=== PATIENT | female | born 1990 | race Asian ===

== ENCOUNTER 2024-02-06 03:43 | Inpatient (IN) | payer MEDICAID ==
[2024-02-06] MEDS ORDERED: Sodium Chloride 0.9% 10 ML Syringe FLUSH PRN (04:33)
[2024-02-06] MEDS ORDERED: Ondansetron 4 MG/2 ML SDV IVPUSH PRN (04:33)
[2024-02-06] MEDS ORDERED: Nalbuphine 10 MG/1 ML Vial IVPUSH PRN (04:33)
[2024-02-06] MEDS ORDERED: Lactated Ringers 1,000 ML IV SCH (04:45)
[2024-02-06 04:56] LABS: BASOPHILS PERCENT AUTO 0.1 % (0.0-1.0); EOSINOPHILS PERCENT AUTO 0.3 % (0.0-6.0); HEMATOCRIT 35.9 % (37.0-47.0); HEMOGLOBIN 11.5 gm/dl (12.0-16.0); IMMATURE GRAN ABSOLUTE AUTO 0.14 K/mm3 (0.00-0.05); IMMATURE GRAN PERCENT AUTO 1.2 % (0.0-0.4); LYMPHOCYTES ABSOLUTE AUTO 1.3 K/mm3 (1.0-4.8); LYMPHOCYTES PERCENT AUTO 11.1 % (24.0-44.0); MEAN CORPUSCULAR HEMOGLOBIN 29.8 pg (28.0-32.0); MEAN PLATELET VOLUME 11.1 fl (9.4-12.3); MONOCYTES ABSOLUTE AUTO 0.6 K/mm3 (0.0-0.8); MONOCYTES PERCENT AUTO 5.3 % (0.0-8.0); NEUTROPHILS ABSOLUTE AUTO 9.3 K/mm3 (1.8-7.7); PLATELET COUNT,PLT 185 K/mm3 (150-400); RED BLOOD CELL COUNT 3.86 M/mm3 (4.10-5.30); WHITE BLOOD CELL COUNT,WBC 11.34 K/mm3 (3.9-11.3)
[2024-02-06] MEDS: Lidocaine 1% 50 ML MDV INJECT PRN (16:00)
[2024-02-06] MEDS: Oxytocin/0.9 % Sodium Chloride 30 UNIT/500 ML BAG IV SCH (16:05)
[2024-02-06] MEDS ORDERED: Acetaminophen 325 MG Tab PO PRN (16:54)
[2024-02-06] MEDS ORDERED: Docusate Sodium 100 MG Cap PO PRN (16:54)
[2024-02-06] MEDS: Witch Hazel Medicated Pads 40/Jar TOP PRN (17:26)
[2024-02-06] MEDS: Benzocaine/Menthol 20%-0.5% Spray 78 GM Cannister TOP PRN (17:26)
[2024-02-06] MEDS: Ibuprofen 600 MG Tab PO SCH (18:32)
[2024-02-06] MEDS: Ferrous Sulfate 324 MG Tab.EC PO SCH (18:44)
[2024-02-07 07:35] LABS: HEMATOCRIT 27.3 % (37.0-47.0); MEAN CORPUSCULAR HEMOGLOBIN 29.9 pg (28.0-32.0); MEAN CORPUSCULAR HGB CONC 32.6 g/dl (32.0-36.0); MEAN CORPUSCULAR VOLUME 91.6 fl (83.0-99.0); MEAN PLATELET VOLUME 11.3 fl (9.4-12.3); PLATELET COUNT,PLT 144 K/mm3 (150-400); RED BLOOD CELL COUNT 2.98 M/mm3 (4.10-5.30); WHITE BLOOD CELL COUNT,WBC 16.26 K/mm3 (3.9-11.3)
[2024-02-07 07:36] LABS: HEMOGLOBIN 8.9 gm/dl (12.0-16.0)
[2024-02-07] MEDS: Prenatal Multivitamin with Calcium/Folic Acid/Iron Tab PO SCH (08:24)
[2024-02-07] MEDS: Sodium Chloride 0.9% 10 ML Syringe FLUSH SCH (17:24)
[2024-02-08 07:14] LABS: HEMATOCRIT 27.1 % (37.0-47.0); HEMOGLOBIN 8.7 gm/dl (12.0-16.0); MEAN CORPUSCULAR HGB CONC 32.1 g/dl (32.0-36.0); MEAN CORPUSCULAR VOLUME 93.4 fl (83.0-99.0); MEAN PLATELET VOLUME 10.9 fl (9.4-12.3); PLATELET COUNT,PLT 140 K/mm3 (150-400)
== END 2024-02-08 10:48 | disposition home or self-care (01) | DRG 807 ==
LOC: JD.OBCHECK 03:43 → JD.OB 03:52 → JD.OBCHECK 05:21 → JD.OB 05:26 → OBSVTOIN 16:04 → JD.OB 16:05
PROVIDERS: ADMIT Family Medicine; ATTEND Family Medicine
PROC: 10E0XZZ Delivery of Products of Conception, External Approach (ICD-10-PCS; principal; 2024-02-06)
PROC: 0KQM0ZZ Repair Perineum Muscle, Open Approach (ICD-10-PCS; 2024-02-06)
PROC: 10907ZC Drainage of Amniotic Fluid, Therapeutic from Products of Conception, Via Natural or Artificial Opening (ICD-10-PCS; 2024-02-06)
PROC: 3E033VJ Introduction of Other Hormone into Peripheral Vein, Percutaneous Approach (ICD-10-PCS; 2024-02-06)
DX: O48.0 Post-term pregnancy (principal); Z37.0 Single live birth; O70.1 Second degree perineal laceration during delivery; O69.81X0 Labor and delivery complicated by cord around neck, without compression, not applicable or unspecified; O90.81 Anemia of the puerperium; Z3A.40 40 weeks gestation of pregnancy
CPT/HCPCS: 36415; 59025; 59409; 85025; 85027; 86592; 86850; 86900; 86901; A9270-GY; J2001; J3490; J7999